=== PATIENT | female | born 1980 | race Caucasian/White ===

== ENCOUNTER 2016-11-20 11:40 | Outpatient (CLI) | payer OTHER ==
[~2016-11-20] VITALS: Ht 165.1 cm; Wt 110.3 kg
--- NOTE | 2016-11-20 12:56 | RADRPT ---
PROCEDURE: Limited OB ultrasound CLINICAL INDICATION: Rupture of membranes TECHNIQUE: Sonographic evaluation to assess the RIVERA was performed. Transabdominal imaging of the gravid uterus was performed. COMPARISON: No prior exam is available for comparison. FINDINGS: There is a single live intrauterine with a heart rate of 122 bpm. position is cephalic. The placenta is anterior. The RIVERA measures 11.7 cm. IMPRESSION: The RIVERA measures 11.7 cm. RPTAT: HH .Elen Dailey MD, MD Date Time Electronically viewed and signed by .Elen Dailey MD, MD on 11/20/2016 12:56 .G/
[2016-11-20 13:15] VITALS: Ht 165.1 cm; Wt 110.3 kg
[2016-11-20] MEDS ORDERED: PRENAT PO (13:15)
[2016-11-20] MEDS ORDERED: FER325 PO (13:15)
[2016-11-20 13:16] VITALS: BP 102/61; PULSE 84; RESP 18
--- NOTE | 2016-11-20 14:03 | TRIAGE ---
OB Triage Datetime Report Generated by CPN: 11/20/2016 14:03 Datetime: 11/20/2016 11:47 Stage of : OB Triage Assessment Type: Triage Maternal Assessment Level of Consciousness: Fully Conscious DTR's/Clonus: DTRs 2+; No Clonus Headache: Denies Blurred Vision: No Respiratory Effort: Unlabored; Regular Rhythm; Equal Expansion Breath Sounds, Left: Clear and Equal Breath Sounds, Right: Clear and Equal Nausea/Vomiting: Denies RUQ Epigastric Pain: Denies Lower Extremities Edema: None Upper Extremities Edema: None Facial Edema: None Temperature Route: Oral Fall Risk Assessment History of Falling: (0) No Secondary Diagnosis: (0) No Ambulatory Aid: (0) Bedrest/Nurse Assist IV Therapy: (0) No Gait: (0) Normal/Bedrest/Immobile Mental Status: (0) Oriented to Own Ability Fall Score: 0 Fall Risk Score Definition: No Risk: No action required Pain Assessment Pain Scale: 0 Pain Presence: None/Denies Pain Type: N/A Datetime: 11/20/2016 11:46 EGA: 35.6 Datetime: 11/20/2016 11:45 Time of Arrival: 11/20/2016 11:35 Arrived By: Ambulatory Arrived From: Office Chief Complaint: NST AND RIVERA Movement: Present Contractions: Denies/Absent Rupture of Membranes: Denies Vaginal Bleeding: None Vaginal Discharge: Denies Recent Sexual Intercouse: Denies Abdominal Trauma: Not Applicable Patient Complaints: Other Additional Patient Complaints: PT HERE FOR NST AND RIVERA DUE TO GDM Time Provider Notified: 11/20/2016 13:20 Provider Notified: NEETU Initial Plan: NST _ RIVERA
--- NOTE | 2016-11-20 21:54 | PN ---
Triage Information Date/Time 11/20/2016 Weeks of Gestation 35 weeks and 6 days : 6 Para: 3 Diabetes management: diet controlled Hypertention: none Additional information 35-year-old with IUP at 35 weeks and 6 days with GDM A1 and care with Dr. Conner presented here for NST RIVERA. She denies any vaginal bleeding, leaking of fluid or decreased movement. She brought her glucose log sheet and review of that shows her fasting persistently has been lower than 90 and 2 hour postprandial are between 80-120. Patient denies any other symptoms. Objective Vital Signs Date Time Temp Pulse Resp B/P Pulse Ox O2 Delivery O2 Flow Rate FiO2 11/20/16 13:16 97.6 84 18 102/61 Room Air Exam General appearance: Alert and oriented 4 patient does not appear to be in any acute distress. Abdomen: Soft, gravid, fundal height consistent with gestational age. Nontender. Extremities: No calf tenderness, no click no edema. Negative Homans sign NST: Category 1 RIVERA: 11.7 Results/Medications Results 24 hrs Vital Signs Date Time Temp Pulse Resp B/P Pulse Ox O2 Delivery O2 Flow Rate FiO2 11/20/16 13:16 97.6 84 18 102/61 Room Air VS - Last 72 Hours, by Label Date Time Temp Pulse Resp B/P Pulse Ox O2 Delivery O2 Flow Rate FiO2 11/20/16 13:16 97.6 84 18 102/61 Room Air Imaging Results PROCEDURE: Limited OB ultrasound CLINICAL INDICATION: Rupture of membranes TECHNIQUE: Sonographic evaluation to assess the RIVERA was performed. Transabdominal imaging of the gravid uterus was performed. COMPARISON: No prior exam is available for comparison. FINDINGS: There is a single live intrauterine with a heart rate of 122 bpm. position is cephalic. The placenta is anterior. The RIVERA measures 11.7 cm. IMPRESSION: The RIVERA measures 11.7 cm. RPTAT: HH Assessment/Plan IUP at 35 weeks and 6 days GDM A1 Well-controlled testing reassuring Patient discharged home Follow-up with testing biweekly and follow-up with OB office in 1-2 days labor precaution, kick counts discussed with the patient. Patient verbalized understanding and agreed to comply with instructions. KELBY MURCIA MD Nov 20, 2016 21:54
== END 2016-11-20 14:10 | disposition home or self-care (01) ==
LOC: OBT 11:40 → L-D 11:41 → OBT 14:10
PROVIDERS: ATTEND Obstetrics & Gynecology
DX: O24.410 Gestational diabetes mellitus in pregnancy, diet controlled (principal); O26.893 Other specified pregnancy related conditions, third trimester; Z3A.35 35 weeks gestation of pregnancy
CPT/HCPCS: 59025; 76815; Z7500; G0463

== ENCOUNTER 2016-12-08 07:05 | Outpatient (CLI) | payer OTHER ==
[~2016-12-08] VITALS: Ht 162.6 cm; Wt 110.7 kg
[~2016-12-08 07:05] MED LIST: FER325 PO; PRENAT PO
[2016-12-08 07:16] VITALS: Ht 162.6 cm; Wt 110.7 kg
--- NOTE | 2016-12-08 08:46 | RADRPT ---
PROCEDURE: OB ultrasound CLINICAL INDICATION: Pelvic pain with possible premature rupture of membranes TECHNIQUE: Multiple transverse and longitudinal OB images of the pelvis were obtained. The images were reviewed on a high-resolution PACS workstation. COMPARISON: 11/20/2016 FINDINGS: A single live intrauterine is seen. The presentation is vertex. The placenta is grade 1 a nd anterior in location. No evidence of placenta abruption or previa is seen. The heart rate i s 138 beats per minute. The amniotic fluid index is 5 cm. movement 2 tone 2 breathing 2 Amniotic fluid 2 IMPRESSION: Biophysical profile of 01/21 with the RIVERA lower limits of normal and has decreased compared to the dasha or examination. RPTAT: HPNM Physician Chinedu Date Time Electronically viewed and signed by Physician Chinedu on 12/08/2016 08:46 /
--- NOTE | 2016-12-08 10:55 | RADRPT ---
PROCEDURE: OB ultrasound CLINICAL INDICATION: . OB ultrasound with fluid volume assessment. TECHNIQUE: Sonographic evaluation to assess the amniotic fluid volume was performed. Transabdomin al imaging of the gravid uterus was performed. COMPARISON: 12/08/2016 FINDINGS: The amniotic fluid index equals approximately 8.0 cm. IMPRESSION: Amniotic fluid index equals 8.0 cm. Previously 5.9 cm RPTAT: AADD .Thee George MD, MD Date Time Electronically viewed and signed by .Thee George MD, on 12/08/2016 10:54 .B/
[2016-12-08] MEDS ORDERED: LACTATED RINGER'S 1,000 ML IV ONE (11:00)
--- NOTE | 2016-12-08 11:31 | TRIAGE ---
OB Triage Datetime Report Generated by CPN: 12/08/2016 11:31 Datetime: 12/08/2016 11:05 Labor Evaluation Frequency: x2 Monitor Mode: External Duration (sec)2399: 60-90 Quality: Mild Pattern: Normal: <= 5 Contractions in 10 Minutes Resting Tone [place]: Relaxed Heart Rate FHR Baseline Rate: 130 Monitor Mode: External US FHR Baseline Changes: No Baseline Change Variability: Moderate 6-25 bpm Accelerations: 15X15 Decelerations: None Category: Category I Datetime: 12/08/2016 10:26 Vaginal Exam Dilatation (cms): 0.0 Datetime: 12/08/2016 09:57 Labor Evaluation Frequency: OCC Monitor Mode: External Quality: Mild Pattern: Normal: <= 5 Contractions in 10 Minutes Resting Tone [place]: Relaxed Heart Rate FHR Baseline Rate: 130 Monitor Mode: External US FHR Baseline Changes: No Baseline Change Variability: Moderate 6-25 bpm Accelerations: 15X15 Decelerations: None Category: Category I Pain Assessment Pain Presence: None/Denies Datetime: 12/08/2016 08:50 Labor Evaluation Frequency: OCC Monitor Mode: External Quality: Mild Pattern: Normal: <= 5 Contractions in 10 Minutes Resting Tone [place]: Relaxed Heart Rate FHR Baseline Rate: 130 FHR Baseline Changes: No Baseline Change Variability: Moderate 6-25 bpm Accelerations: 15X15 Decelerations: None Category: Category I Pain Assessment Pain Presence: None/Denies Datetime: 12/08/2016 07:13 Stage of : OB Triage Assessment Type: Triage Maternal Assessment Level of Consciousness: Fully Conscious DTR's/Clonus: DTRs 2+; No Clonus Headache: Denies Blurred Vision: No Respiratory Effort: Unlabored; Regular Rhythm; Equal Expansion Breath Sounds, Left: Clear and Equal Breath Sounds, Right: Clear and Equal Nausea/Vomiting: Denies RUQ Epigastric Pain: Denies Lower Extremities Edema: None Degree: None Upper Extremities Edema: None Degree: None Facial Edema: None Temperature Route: Oral Fall Risk Assessment History of Falling: (0) No Secondary Diagnosis: (0) No Ambulatory Aid: (0) Bedrest/Nurse Assist IV Therapy: (0) No Gait: (0) Normal/Bedrest/Immobile Mental Status: (0) Oriented to Own Ability Fall Score: 0 Fall Risk Score Definition: No Risk: No action required Labor Evaluation Frequency: OCC Monitor Mode: External Duration (sec)2399: 60 Quality: Mild Pattern: Normal: <= 5 Contractions in 10 Minutes Resting Tone [place]: Relaxed Heart Rate FHR Baseline Rate: 130 Monitor Mode: External US FHR Baseline Changes: No Baseline Change Variability: Moderate 6-25 bpm Accelerations: 15X15 Decelerations: None Category: Category I Pain Assessment Pain Presence: None/Denies Pain Relief Measures: Comfort Measures Datetime: 12/08/2016 07:00 Time of Arrival: 12/08/2016 07:00 EGA: 38.3 Arrived By: Ambulatory Arrived From: Home Chief Complaint: LEAKING AND UC'S Movement: Present Contractions: Occasional Rupture of Membranes: Unsure Vaginal Bleeding: None Vaginal Discharge: Present Recent Sexual Intercouse: Denies Abdominal Trauma: Not Applicable Patient Complaints: Other Time Provider Notified: 12/08/2016 08:58 Initial Plan: RIVERA, ROM PLUS Datetime: 11/20/2016 11:47 Fall Score: 0 Fall Risk Score Definition: No Risk: No action required Datetime: 11/20/2016 11:46 EGA: 35.6
--- NOTE | 2016-12-08 17:21 | QN ---
Documentation Comment iup 38 weeks LOF vss exam wnl ROM test negative us wnl a/p iup 38 weeks false labor [facility] BYRON DÍAZ MD Dec 08, 2016 17:21
== END 2016-12-08 11:30 | disposition home or self-care (01) ==
LOC: OBT 07:05 → L-D 07:07 → OBT 11:30
PROVIDERS: ATTEND Obstetrics & Gynecology
DX: O47.1 False labor at or after 37 completed weeks of gestation (principal); Z3A.38 38 weeks gestation of pregnancy; O26.893 Other specified pregnancy related conditions, third trimester; R10.2 Pelvic and perineal pain
CPT/HCPCS: 36415; 76816; 76818; 84112; 96360; J7120; Z7500; G0463